=== PATIENT | male | born 1960 | race African-American/Black ===

== ENCOUNTER 2023-01-16 14:17 | Inpatient (IN) | payer MEDICARE, OTHER ==
[~2023-01-16] VITALS: Ht 165.1 cm; Wt 60.1 kg
[~2023-01-16 14:17] MED LIST: ASPI-1497 PO; METOPROLOL PO; [UNRECOGNIZED DRUG - OTHER]
[2023-01-16] MEDS ORDERED: LORAZEPAM 1MG TABLET PO ONE (14:45)
[2023-01-16 15:48] LABS: BASOPHILS % 0.2 % (0.0-2.0); HEMATOCRIT. 43.2 % (42.0-52.0); HEMOGLOBIN. 14.4 g/dL (14.0-18.0); LYMPHOCYTES % 7.2 % (20.0-50.0); MEAN CORPUSCULAR HEMOGLOBIN 29.6 pg (28.0-32.0); MEAN CORPUSCULAR VOLUME 89.1 fL (80.0-94.0); MEAN PLATELET VOLUME 8.1 fl (7.4-10.4); MONOCYTES % 10.4 % (2.0-8.0); NEUTROPHILS % 82.2 % (40.0-76.0); PLATELET 185 x1000/uL (130-400); RED BLOOD CELL COUNT 4.85 mill/uL (4.7-6.1); RED CELL DISTRIBUTION WIDTH 15.7 % (11.6-14.6)
[2023-01-16 15:53] LABS: CHLORIDE 100 mEq/L (98-107)
[2023-01-16] MEDS ORDERED: CHLORDIAZEPOXIDE 25MG CAPSULE PO ONE (19:15)
[2023-01-16] MEDS ORDERED: METOPROLOL SUCCINATE 50MG ER TABLET PO ONE (19:15)
[2023-01-16] MEDS ORDERED: LORAZEPAM 2MG/ML CPJ IV ONE (19:30)
[2023-01-16] MEDS ORDERED: SODIUM CHLORIDE 0.9% 500 ML IV ONE (20:45)
[2023-01-17] MEDS ORDERED: ENOXAPARIN 40MG/0.4ML SYR SUBCUT NR (00:30)
[2023-01-17 00:35] VITALS: BP 130/93
[2023-01-17] MEDS ORDERED: APIX5TAB PO (01:15)
[2023-01-17] MEDS ORDERED: PANT40TA51 PO (01:15)
[2023-01-17] MEDS ORDERED: FOLI-43 PO (01:15)
[2023-01-17] MEDS ORDERED: AMLO2.5T2 PO (01:15)
[2023-01-17] MEDS ORDERED: MAGN400C PO (01:15)
[2023-01-17] MEDS ORDERED: TAMS-11 PO (01:15)
[2023-01-17] MEDS ORDERED: METO-385 PO (01:15)
[2023-01-17] MEDS ORDERED: LORAZEPAM 2MG/ML CPJ IV PRN ×2 (01:45→12:37)
[2023-01-17] MEDS: DEXT 5%/0.45% NACL 1000ML 1,000 ML IV SCH ×2 (02:13→13:10)
[2023-01-17 06:06] LABS: HEMATOCRIT. 36.2 % (42.0-52.0); HEMOGLOBIN. 11.9 g/dL (14.0-18.0); MEAN CORPUSCULAR HEMOGLOBIN 29.5 pg (28.0-32.0); MEAN CORPUSCULAR VOLUME 89.2 fL (80.0-94.0); MEAN PLATELET VOLUME 8.4 fl (7.4-10.4); PLATELET 147 x1000/uL (130-400); RED BLOOD CELL COUNT 4.06 mill/uL (4.7-6.1); RED CELL DISTRIBUTION WIDTH 15.5 % (11.6-14.6)
[2023-01-17 06:09] LABS: CHLORIDE 99 mEq/L (98-107)
[2023-01-17] MEDS: PANTOPRAZOLE 40MG DR TABLET PO SCH (06:17)
[2023-01-17 07:58] VITALS: BP 130/88
[2023-01-17] MEDS: TAMSULOSIN HCL 0.4MG SR CAPSULE PO SCH (08:31)
[2023-01-17] MEDS: METOPROLOL TARTRATE 50MG TABLET PO SCH ×2 (08:31→16:54)
[2023-01-17] MEDS: APIXABAN 5 MG TABLET PO SCH ×2 (08:32→16:54)
[2023-01-17] MEDS: FOLIC ACID 1MG TABLET PO SCH (08:56)
[2023-01-17 10:57] LABS: PLATELET ESTIMATE NORMAL
[2023-01-17] MEDS: THIAMINE HCL 100 MG in SODIUM CHLORIDE 0.9% 49 ML IV SCH (11:03)
[2023-01-17 12:00] VITALS: BP_SYST 110; BP_SYST 124; BP_DIAS 74; BP_DIAS 86
[2023-01-17] MEDS ORDERED: POTASSIUM CHLORIDE 20MEQ TABLET SR PO NR (12:45)
[2023-01-17 16:00] VITALS: BP 122/84
[2023-01-17 20:00] VITALS: BP 116/76
[2023-01-18] VITALS: BP 120/80
[2023-01-18 04:00] VITALS: BP 118/85
[2023-01-18] MEDS: DEXT 5%/0.45% NACL 1000ML 1,000 ML IV SCH ×2 (05:20→09:05)
[2023-01-18] MEDS: PANTOPRAZOLE 40MG DR TABLET PO SCH (06:41)
[2023-01-18 08:00] VITALS: BP 128/93
[2023-01-18] MEDS: TAMSULOSIN HCL 0.4MG SR CAPSULE PO SCH (09:05)
[2023-01-18] MEDS: APIXABAN 5 MG TABLET PO SCH (09:06)
[2023-01-18] MEDS: METOPROLOL TARTRATE 50MG TABLET PO SCH (09:06)
[2023-01-18] MEDS: FOLIC ACID 1MG TABLET PO SCH (09:06)
[2023-01-18 12:00] VITALS: BP 115/83
[2023-01-18] MEDS: THIAMINE HCL 100 MG in SODIUM CHLORIDE 0.9% 49 ML IV SCH (12:04)
[2023-01-18] MEDS ORDERED: THIA100T88 MT (14:12)
[2023-01-18] MEDS ORDERED: CHLO25CA10 PO (14:12)
[2023-01-18 15:06] VITALS: BP 115/83
[2023-01-19] MEDS ORDERED: FAMOTIDINE 20MG TABLET PO SCH (09:00)
== END 2023-01-18 15:55 | disposition home or self-care (01) | DRG 897 ==
LOC: ER 14:17 → MICUSO 21:49 → 7EST 01-17 01:00
PROVIDERS: ADMIT Internal Medicine; ATTEND Internal Medicine
DX: F10.239 Alcohol dependence with withdrawal, unspecified (principal); I10 Essential (primary) hypertension; F41.9 Anxiety disorder, unspecified; R00.0 Tachycardia, unspecified; Z79.01 Long term (current) use of anticoagulants; Z86.711 Personal history of pulmonary embolism
CPT/HCPCS: 36415; 80048; 80053; 80076; 83735; 85025; 85379; 93005; 99285; J2060; J3411; J7040